=== PATIENT | female | born 1945 | race Asian ===

== ENCOUNTER → 2017-01-18 | Outpatient (CLI) | payer OTHER, BC ==
[~2017-01-18] MED LIST: ADVIN10050 INH; ASPCH81X PO; ASPI1TAB83 PO; ATEN-173 PO; CHOL20009 PO; GLC500 PO; LOSA1TAB PO; SIMV20TA2 PO; Symbicort INH
[2017-01-18 14:42] LABS: ESTIMATED AVERAGE GLUCOSE 143 mg/dl; HA1C FLAG Normal (Normal)
== END | disposition home or self-care (01) ==
LOC: C.LABBC 11:19
PROVIDERS: ATTEND Internal Medicine
DX: E11.9 Type 2 diabetes mellitus without complications (principal)

== ENCOUNTER → 2017-03-16 | Outpatient (CLI) | payer OTHER, BC | END | disposition home or self-care (01) | LOC: C.PAPS 16:13 | PROVIDERS: ATTEND Obstetrics & Gynecology | DX: Z01.42 Encounter for cervical smear to confirm findings of recent normal smear following initial abnormal smear (principal); C55 Malignant neoplasm of uterus, part unspecified ==

== ENCOUNTER → 2017-05-27 | Outpatient (CLI) | payer OTHER, BC ==
--- NOTE | 2017-05-30 12:29 | MAMMOGRAPHY REPORT ---
BILATERAL DIGITAL SCREENING MAMMOGRAM WITH CAD: 05/27/2017 TECHNIQUE: Current study was also evaluated with a Computer Aided Detection (CAD) system. Bilateral CC and MLO views were obtained. COMPARISON: Comparison is made to exams dated: 05/25/2016 mammogram, 05/19/2015 mammogram, 10/12/2013 m ammogram, 10/11/2012 mammogram, 09/27/2011 mammogram, and 04/22/2010 mammogram - [facility]. BREAST COMPOSITION: The tissue of both breasts is heterogeneously dense, which may obscure small mas ses. FINDINGS: There is a nodular 8 mm asymmetry seen within the left inferior breast on the MLO view only , which may represent normal overlapping fibroglandular tissue although spot compression tomosynthesi s views and possible breast ultrasound are recommended for further evaluation. The remainder of both breasts are stable compared to prior exams, without suspicious masses, calcific ations, or areas of architectural distortion noted. IMPRESSION: ACR BI-RADS CATEGORY 0: INCOMPLETE EVALUATION: NEED ADDITIONAL IMAGING EVALUATION Left inferior breast asymmetry, for which additional imaging evaluation is recommended. The patient will be called to schedule an appointment. Approximately 10% of breast cancers are not detected with mammography. A negative mammographic report should not delay biopsy if a clinically suggestive mass is present. Candie Johnston M.D. /:05/28/2017 14:22:57 Taximeter Repairer: Dariela ROGERS(R)(M), [facility] letter sent: Addl Imaging 0 BI-RADS Code: ACR BI-RADS Category 0: Incomplete Evaluation: Need Additional Imaging Evaluation
== END | disposition home or self-care (01) ==
LOC: C.MAMM 13:28
PROVIDERS: ATTEND Obstetrics & Gynecology
DX: Z12.31 Encounter for screening mammogram for malignant neoplasm of breast (principal); R92.8 Other abnormal and inconclusive findings on diagnostic imaging of breast

== ENCOUNTER → 2017-06-01 | Outpatient (CLI) | payer OTHER, BC ==
--- NOTE | 2017-06-01 12:24 | MAMMOGRAPHY REPORT ---
UNILATERAL LEFT DIGITAL DIAGNOSTIC MAMMOGRAM TOMOSYNTHESIS AND TARGETED LEFT ULTRASOUND: 06/01/2017 CLINICAL HISTORY: Callback from screening mammogram for left breast asymmetry. TECHNIQUE: Breast tomosynthesis in addition to standard 2D mammography was performed. Spot compress ion left CC and MLO 2-D and tomosynthesis images were obtained. COMPARISON: Comparison is made to exams dated: 05/27/2017 mammogram, 05/25/2016 mammogram, 05/19/2015 sukhdev mogram, 10/12/2013 mammogram, 10/11/2012 mammogram, and 09/27/2011 mammogram - [facility]. BREAST COMPOSITION: The tissue of the left breast is heterogeneously dense, which may obscure small masses. FINDINGS: The previously described nodular asymmetry seen within the left inferior breast on the MLO view only effaces to a baseline appearance on the additional spot compression views, with appearance of this region similar to multiple prior exams including the 2014 and 2009 exams. The tissue in this region has the appearance of normal fibroglandular tissue on the additional tomosynthesis images, wi thout evidence of a discrete mass or architectural distortion noted. Targeted ultrasound was performed of the region of the asymmetry in the left inferior breast. No irina picious masses or other suspicious sonographic abnormalities are evident. Incidentally noted in the left 3:00 breast, 2 cm from the nipple is an oval anechoic circumscribed 4 x 3 mm mass, consistent wi th a benign simple cyst. IMPRESSION: ACR BI-RADS CATEGORY 2: BENIGN, TARGETED ULTRASOUND ACR BI-RADS CATEGORY 2: BENIGN The left inferior breast asymmetry effaces on the additional views, without corresponding suspicious sonographic abnormality evident. The asymmetry is benign and compatible with normal fibroglandular t issue. There is no mammographic or targeted sonographic evidence of malignancy. A 1 year screening m ammogram is recommended. The patient has been verbally notified of the results. Approximately 10% of breast cancers are not detected with mammography. A negative mammographic report should not delay biopsy if a clinically suggestive mass is present. Candie Johnston M.D. /:06/01/2017 09:08:34 Customer Orders Clerk: Dariela ROGERS(Trevor)(M), [facility] [address] letter sent: Normal 1/2 BI-RADS Code: ACR BI-RADS Category 2: Benign Ultrasound BI-RADS: ACR BI-RADS Category 2: Benign
== END | disposition home or self-care (01) ==
LOC: C.MAMM 08:39
PROVIDERS: ATTEND Obstetrics & Gynecology
DX: R92.8 Other abnormal and inconclusive findings on diagnostic imaging of breast (principal); N64.89 Other specified disorders of breast

== ENCOUNTER → 2017-06-10 | Day surgery (SDC) | payer OTHER, BC ==
[2017-06-09 13:33] VITALS: Ht 151.1 cm; Wt 54.5 kg
[~2017-06-10] VITALS: Ht 151.1 cm; Wt 54.5 kg
[~2017-06-10] MED LIST changes: -ASPI1TAB83 PO; +LIDOCAINE HCL 2% 2 ML VIAL (20MG/ML) ONE; +PHENYLEPHRINE 100MCG/ML 5ML SYR ONE; +PROPOFOL IV EMULSION 10 MG/ML 20 ML VIAL IV ONE; -Symbicort INH
[2017-06-10 14:46] VITALS: TEMP 36.7
--- NOTE | 2017-06-10 15:06 | Endo History and Physical ---
History & Physical Date of Service: Jun 10, 2017. Chief Complaint: history of polyp Referring Physician: Dr. Luther Kaiser History of Present Illness For colonoscopy Past Surgical History Hx Cardiac Surgery: No Hx Internal Defibrillator: No Hx Pacemaker: No Hx Abdominal Surgery: No Hx of Implantable Prosthesis: No Hx Post-Op Nausea and Vomiting: Yes (EXTREME NAUSEA) Hx Cancer Surgery: Yes (ISABELLA BSO & ABDOMINAL LYMPH NODES REMOVAL) Hx Thoracic Surgery: No Hx Orthopedic: Yes (LEFT FOOT FX REPAIR (HARDWARE)) Hx Urinary Tract Surgery: No Family History None Social History Smoking Status: Never Smoker Hx Substance Use: No Hx Alcohol Use: No Allergies Coded Allergies: Adhesives (Verified Adverse Reaction, Unknown, SKIN IRRITATION, 06/10/17) Latex (Verified Adverse Reaction, Unknown, SKIN IRRITATION, 06/10/17) Morphine (Verified Adverse Reaction, Unknown, NAUSEA AND VOMITING, 06/10/17 ) Current Medications Reported Home Medications Medications Dose Route/Sig Max Daily Dose Days Date Category Vitamin D (Cholecalciferol) 2,000 Unit Tab 1 Tab PO QAM 06/09/17 Reported Zocor (Simvastatin) 20 Mg Tab 20 Mg PO QPM 06/09/17 Reported Cozaar (Losartan Potassium) 25 Mg Tab 25 Mg PO QAM 06/09/17 Reported Tenormin (Atenolol) 25 Mg Tab 25 Mg PO QAM 06/09/17 Reported Aspirin Chewable (Aspirin) 81 Mg Chew 81 Mg PO HS 06/09/17 Reported Advair Diskus 100-50 Mcg/Dose (Fluticasone Prop/Salmeterol) 14 Puff/1 Inhaler Aerp 1 Puff INH BID PRN 06/09/17 Reported Glucophage * (Metformin HCl) 500 Mg Tab 500 Mg PO BID 02/15/11 Reported Vital Signs Weight (Kilograms): 54.55 Height (Feet): 4 Height (Inches): 11.5 Date Time Temp Pulse Resp B/P (MAP) Pulse Ox O2 Delivery O2 Flow Rate FiO2 06/10/17 14:46 36.7 72 18 136/74 (94) 98 Room Air Physical Exam General Appearance: WD/WN Respiratory/Chest: Respiratory effort: no dyspnea Cardiovascular: Heart Auscultation: RRR Abdomen: Inspection & Palpation: soft Assessment and Plan Hx polyps for colonoscopy
--- NOTE | 2017-06-10 15:42 | Discharge Instructions ---
Endoscopy Patient Instructions Date / Procedure(s) Performed Jun 10, 2017. Colonoscopy Allergy Information Coded Allergies: Adhesives (Verified Adverse Reaction, Unknown, SKIN IRRITATION, 06/10/17) Latex (Verified Adverse Reaction, Unknown, SKIN IRRITATION, 06/10/17) Morphine (Verified Adverse Reaction, Unknown, NAUSEA AND VOMITING, 06/10/17 ) Discharge Date / Findings Jun 10, 2017. polyp, hemorrhoids Medication Instructions Stopped Medication(s): stopped Metformin yesterday,took ASA yesterday Restart Stopped Medication(s): resume meds Reported Home Medications Medications Dose Route/Sig Max Daily Dose Days Date Category Vitamin D (Cholecalciferol) 2,000 Unit Tab 1 Tab PO QAM 06/09/17 Reported Zocor (Simvastatin) 20 Mg Tab 20 Mg PO QPM 06/09/17 Reported Cozaar (Losartan Potassium) 25 Mg Tab 25 Mg PO QAM 06/09/17 Reported Tenormin (Atenolol) 25 Mg Tab 25 Mg PO QAM 06/09/17 Reported Aspirin Chewable (Aspirin) 81 Mg Chew 81 Mg PO HS 06/09/17 Reported Advair Diskus 100-50 Mcg/Dose (Fluticasone Prop/Salmeterol) 14 Puff/1 Inhaler Aerp 1 Puff INH BID PRN 06/09/17 Reported Glucophage * (Metformin HCl) 500 Mg Tab 500 Mg PO BID 02/15/11 Reported Provider Instructions Activity Restrictions - No exercising or heavy lifting for 24 hours. - Do not drink alcohol the day of the procedure. - Do not drive a car or operate machinery until the day after the procedure. - Do not make any important decisions or sign important papers in 24 hours after the procedure. Following Day: - Return to full activity which may include returning to work/school. Diet Start your diet with liquids and light foods (jello, soup, juice, toast). Then eat your usual diet if not nauseated. Treatment For Common After Affects For mild abdominal pain, bloating, or excessive gas: - Rest - Eat lightly - Lie on right side Follow-Up Information Follow-up with Dr. Luther Kaiser as scheduled Anesthesia Information What You Should Know You have had a procedure that required some medicine to reduce anxiety and discomfort. This treatment is called moderate sedation. After receiving the treatment, you may be sleepy, but you will be able to breathe on your own. The effects of the treatment may last for several hours. Follow these instructions along with Activity/Diet recommendations noted above: * Do NOT do anything where dizziness or clumsiness would be dangerous. * Rest quietly at home today, then you can be up and about tomorrow. * Have a responsible person stay with you the rest of today. * You may have had an I.V. today. If so, you may take the dressing off later today. Recommendations Call your doctor if: * Trouble breathing * Continuous vomiting for more than 24 hours * Temperature above 101 degrees * Severe abdominal pain or bloating * Pain not relieved by pain medicine ordered * There is increased drainage or redness from any incision * A large amount of rectal bleeding greater than 2-3 tablespoons. (If you had a polyp/s removed or have hemorrhoids, a small amount of blood - from the rectum is to be expected.) * You have any unanswered questions or concerns. IN THE EVENT OF A SERIOUS EMERGENCY, GO TO THE NEAREST EMERGENCY ROOM Your discharge instructions were prepared by provider Jared Camejo. Patient Instructions Signature Page Smiley Smith Patient (or Guardian) Signature/Date: I have read and understand the instructions given to me by my caregivers. Caregiver/RN/Doctor Signature/Date: The above-named patient and/or guardian has received patient instructions on this date. + Original Patient Signature Page (only) stays with chart. Please make copy for patient.
--- NOTE | 2017-06-10 15:46 | GI REPORT ---
Procedure Date: 06/10/2017 3:03 PM Procedure: Colonoscopy Indications: Personal history of colonic polyps Medicines: Propofol total dose 180 mg IV, Lidocaine 40 mg IV Complications: No immediate complications. Estimated Blood Loss: Estimated blood loss: none. Procedure: Pre-Anesthesia Assessment: - Prior to the procedure, a History and Physical was performed, and patient medications, allergies and sensitivities were reviewed. The patient's tolerance of previous anesthesia was reviewed. - The risks and benefits of the procedure and the sedation options and risks were discussed with the patient. All questions were answered and informed consent was obtained. After I obtained informed consent, the scope was passed under direct vision. Throughout the procedure, the patient's blood pressure, pulse, and oxygen saturations were monitored continuously. The scope was introduced through the anus and advanced to the cecum, identified by appendiceal orifice and ileocecal valve. The colonoscopy was performed without difficulty. The patient tolerated the procedure well. The quality of the bowel preparation was excellent. Findings: A 3 mm polyp was found in the recto-sigmoid colon. The polyp was sessile. The polyp was removed with a cold biopsy forceps. Resection and retrieval were complete. Estimated blood loss was minimal. Non-bleeding internal hemorrhoids were found during endoscopy. The hemorrhoids were mild. Impression: - One 3 mm polyp at the recto-sigmoid colon, removed with a cold biopsy forceps. Resected and retrieved. - Non-bleeding internal hemorrhoids. Recommendation: - Discharge patient to home (ambulatory). - Continue present medications. - Await pathology results. - Return to primary care physician PRN. Jared Camejo M.D. Jared Camejo MD 06/10/2017 3:46:01 PM This report has been signed electronically. Note Initiated On: 06/10/2017 3:03 PM I attest to the content of the Intraoperative Record and orders documented therein, exceptions below
--- NOTE | 2017-06-10 16:01 | Anesthesiology Progress Note ---
Anesthesia Post Op Note Date & Time Jun 10, 2017 at 16:01 Vital Signs Pain Intensity: 0 Vital Signs Past 12 Hours Date Time Temp Pulse Resp B/P (MAP) Pulse Ox O2 Delivery O2 Flow Rate FiO2 06/10/17 15:53 60 16 100/43 (62) 98 Room Air 06/10/17 15:48 63 16 140/69 (92) 96 Room Air 06/10/17 14:46 36.7 72 18 136/74 (94) 98 Room Air Notes Mental Status: alert / awake / arousable, participated in evaluation Pt Amnestic to Procedure: Yes Nausea / Vomiting: adequately controlled Pain: adequately controlled Airway Patency, RR, SpO2: stable & adequate BP & HR: stable & adequate Hydration State: stable & adequate Anesthetic Complications: no major complications apparent
[2017-06-10 16:08] VITALS: BP 132/61; PULSE 63; O2SAT 99
== END | disposition home or self-care (01) ==
LOC: C.GI 14:19
PROVIDERS: ATTEND Internal Medicine Gastroenterology
DX: Z12.11 Encounter for screening for malignant neoplasm of colon (principal); D12.7 Benign neoplasm of rectosigmoid junction; Z87.19 Personal history of other diseases of the digestive system

== ENCOUNTER → 2017-07-20 | Outpatient (CLI) | payer OTHER, BC ==
[~2017-07-20] MED LIST changes: -LIDOCAINE HCL 2% 2 ML VIAL (20MG/ML) ONE; -PHENYLEPHRINE 100MCG/ML 5ML SYR ONE; -PROPOFOL IV EMULSION 10 MG/ML 20 ML VIAL IV ONE
--- NOTE | 2017-07-20 12:34 | DIAGNOSTIC IMAGING REPORT ---
CHEST 2 VIEWS ROUTINE HISTORY: 72 years-old Female Chronic cough chronic cough x4 years COMPARISON: Chest radiograph 12/15/2015 TECHNIQUE: Frontal and lateral views of the chest FINDINGS: Cardiomediastinal and hilar silhouettes are within normal limits. There is atherosclerosis of the aorta. There is no pneumothorax, pleural effusion or focal airspace consolidation. Minimal blunting of left costophrenic angle suggests scarring/atelectasis. There is no overt pulmonary edema. Mild hyperinflation. The bones are grossly intact. Multilevel endplate spurring is noted with osteopenia. IMPRESSION: Hyperinflation without acute cardiopulmonary process. The above report was generated using voice recognition software. It may contain grammatical, syntax or spelling errors. Electronically signed by: Brannon Gonzales M.D. 07/20/2017 12:33 PM Dictated Date/Time: 07/20/2017 12:29 PM
[2017-07-20 13:34] LABS: BASO % 0.9 %; BASO ABS # 0.06 K/uL (0-0.2); COMPLETE YES; EOS % 1.2 %; HEMATOCRIT 40.6 % (37-47); IG% 0.2 %; LYMPH % 37.2 %; LYMPH ABS # 2.42 K/uL (1.2-3.4); MEAN CELL VOLUME 94.4 fL (80-100); MEAN PLATELET VOLUME 10.4 fL (7.4-10.4); MONO % 6.9 %; NEUT % 53.6 %; PLATELET COUNT 238 K/uL (130-400)
[2017-07-20 14:28] LABS: ALT/SGPT 19 U/L (12-78); BLOOD UREA NITROGEN 16 mg/dl (7-18); BUN/CREATININE RATIO 19.5 (10-20); CALCIUM 9.4 mg/dl (8.5-10.1); CARBON DIOXIDE 23 mmol/L (21-32); CHLORIDE 106 mmol/L (98-107); CHOLESTEROL 178 mg/dl (0-200); CREATININE 0.82 mg/dl (0.60-1.20); GLUCOSE 101 mg/dl (70-99); POTASSIUM 3.7 mmol/L (3.5-5.1); SODIUM 138 mmol/L (136-145); TRIGLYCERIDES 241 mg/dl (0-150); VERY LOW DENSITY LIPOPROT CALC 48 mg/dl
[2017-07-20 14:38] LABS: ALKALINE PHOSPHATASE 66 U/L (45-117); AST/SGOT 17 U/L (15-37); CHOLESTEROL/HDL RATIO 2.5; HDL CHOLESTEROL 72 mg/dl; LDL CHOLESTEROL CALCULATED 58 mg/dl; THYROID STIMULATING HORMONE 0.538 uIu/ml (0.300-4.500)
[2017-07-20 14:47] LABS: ESTIMATED AVERAGE GLUCOSE 140 mg/dl; HA1C FLAG Normal (Normal)
[2017-07-22 12:39] LABS: QUANTIF TB AG-NIL 0.04 IU/ML; QUANTIFERON NIL 0.23 IU/ML
== END | disposition home or self-care (01) ==
LOC: C.RADBC 11:40
PROVIDERS: ATTEND Internal Medicine
DX: R05 Cough (principal); E11.9 Type 2 diabetes mellitus without complications; I10 Essential (primary) hypertension; M81.0 Age-related osteoporosis without current pathological fracture; E78.5 Hyperlipidemia, unspecified; C55 Malignant neoplasm of uterus, part unspecified; E55.9 Vitamin D deficiency, unspecified; I25.10 Atherosclerotic heart disease of native coronary artery without angina pectoris; R91.8 Other nonspecific abnormal finding of lung field

== ENCOUNTER → 2017-07-26 | Outpatient (CLI) | payer OTHER, BC | END | disposition home or self-care (01) | LOC: C.LABBC 08:54 | PROVIDERS: ATTEND Internal Medicine | DX: R05 Cough (principal) ==

== ENCOUNTER → 2017-08-11 | Outpatient (CLI) | payer OTHER, BC | END | disposition home or self-care (01) | LOC: C.MAMM 15:08 | PROVIDERS: ATTEND Internal Medicine | DX: M85.88 Other specified disorders of bone density and structure, other site (principal); M85.852 Other specified disorders of bone density and structure, left thigh; M85.851 Other specified disorders of bone density and structure, right thigh ==

== ENCOUNTER → 2017-11-07 | Outpatient (CLI) | payer OTHER, BC ==
[2017-11-07 11:46] LABS: HEMATOCRIT 42.2 % (37-47); HEMOGLOBIN 14.7 g/dL (12.0-16.0); MEAN CELL VOLUME 95.3 fL (80-100); MEAN CORPUSCULAR HEMOGLOBIN 33.2 pg (25-34); MEAN CORPUSCULAR HGB CONC 34.8 g/dl (32-36); PLATELET COUNT 244 K/uL (130-400); RED CELL DISTRIBUTION WIDTH CV 12.4 % (11.5-14.5); RED CELL DISTRIBUTION WIDTH SD 43.1 fL (36.4-46.3); WHITE BLOOD COUNT 7.23 K/uL (4.8-10.8)
[2017-11-07 12:02] LABS: ALT/SGPT 26 U/L (12-78); AST/SGOT 20 U/L (15-37); BLOOD UREA NITROGEN 17 mg/dl (7-18); CALCIUM 9.4 mg/dl (8.5-10.1); CARBON DIOXIDE 28 mmol/L (21-32); GLUCOSE 134 mg/dl (70-99); POTASSIUM 3.8 mmol/L (3.5-5.1); SODIUM 138 mmol/L (136-145)
[2017-11-07 12:05] LABS: CHOLESTEROL 195 mg/dl (0-200); LDL CHOLESTEROL CALCULATED 96 mg/dl
== END | disposition home or self-care (01) ==
LOC: C.LABBC 07:58
PROVIDERS: ATTEND Internal Medicine Cardiovascular Disease
DX: I11.0 Hypertensive heart disease with heart failure (principal); R06.09 Other forms of dyspnea; E78.5 Hyperlipidemia, unspecified; I25.10 Atherosclerotic heart disease of native coronary artery without angina pectoris; I50.30 Unspecified diastolic (congestive) heart failure

== ENCOUNTER → 2018-06-06 | Outpatient (CLI) | payer OTHER, BC ==
[2018-06-06 13:05] LABS: BASO % 0.5 %; BASO ABS # 0.03 K/uL (0-0.2); EOS % 0.8 %; EOS ABS # 0.05 K/uL (0-0.5); HEMATOCRIT 41.1 % (37-47); HEMOGLOBIN 13.8 g/dL (12.0-16.0); IG# 0.01 K/uL (0.00-0.02); LYMPH % 34.7 %; LYMPH ABS # 2.15 K/uL (1.2-3.4); MEAN CELL VOLUME 96.3 fL (80-100); MEAN CORPUSCULAR HEMOGLOBIN 32.3 pg (25-34); MEAN CORPUSCULAR HGB CONC 33.6 g/dl (32-36); MEAN PLATELET VOLUME 10.6 fL (7.4-10.4); MONO % 7.1 %; MONO ABS # 0.44 K/uL (0.11-0.59); NEUT % 56.7 %; NEUT ABS # 3.51 K/uL (1.4-6.5); PLATELET COUNT 251 K/uL (130-400); RED CELL DISTRIBUTION WIDTH SD 45.5 fL (36.4-46.3); WHITE BLOOD COUNT 6.19 K/uL (4.8-10.8)
[2018-06-06 13:18] LABS: ALT/SGPT 28 U/L (12-78); AST/SGOT 18 U/L (15-37)
[2018-06-06 13:22] LABS: ALBUMIN 3.8 gm/dl (3.4-5.0); ALKALINE PHOSPHATASE 65 U/L (45-117); ALT/SGPT 29 U/L (12-78); AST/SGOT 19 U/L (15-37); BLOOD UREA NITROGEN 18 mg/dl (7-18); CALCIUM 9.2 mg/dl (8.5-10.1); CARBON DIOXIDE 28 mmol/L (21-32); CREATININE 0.87 mg/dl (0.60-1.20); GLUCOSE 124 mg/dl (70-99); POTASSIUM 4.2 mmol/L (3.5-5.1); SODIUM 138 mmol/L (136-145)
[2018-06-06 13:30] LABS: HEMOGLOBIN A1C 6.8 % (4.5-5.6)
== END | disposition home or self-care (01) ==
LOC: C.LABBC 08:57
PROVIDERS: ATTEND Internal Medicine
DX: I10 Essential (primary) hypertension (principal); R07.89 Other chest pain; R68.89 Other general symptoms and signs; E78.5 Hyperlipidemia, unspecified; I25.10 Atherosclerotic heart disease of native coronary artery without angina pectoris

== ENCOUNTER → 2018-06-08 | Outpatient (CLI) | payer OTHER, BC ==
--- NOTE | 2018-06-08 15:42 | MAMMOGRAPHY REPORT ---
BILATERAL DIGITAL SCREENING MAMMOGRAM TOMOSYNTHESIS WITH CAD: 06/08/2018 CLINICAL HISTORY: Routine screening. Patient has no complaints. TECHNIQUE: The study was acquired using full field digital technology and interpreted from soft copy. Breast tomosynthesis in addition to standard 2D mammography was performed. Current study was also ev aluated with a Computer Aided Detection (CAD) system. COMPARISON: Comparison is made to exams dated: 06/01/2017 mammogram, 05/27/2017 mammogram, 05/25/2016 mamm ogram, 05/19/2015 mammogram, 10/12/2013 mammogram, and 10/11/2012 mammogram - [facility] nter. BREAST COMPOSITION: The tissue of both breasts is heterogeneously dense, which may obscure small mass es. FINDINGS: No suspicious masses, calcifications, or areas of architectural distortion are noted in either breast . There has been no significant interval change compared to prior exams. IMPRESSION: ACR BI-RADS CATEGORY 1: NEGATIVE There is no mammographic evidence of malignancy. A 1 year screening mammogram is recommended.( [id number]) The patient will receive written notification of the results. Some breast cancers are not detected with mammography. A negative mammographic report should not vikas y biopsy if a clinically suggestive mass is present. Candie Johnston M.D. ah/:06/08/2018 10:16:19 Project Scientist: RT Ankita(Trevor)(M), [facility] letter sent: Normal 1/2 BI-RADS Code: ACR BI-RADS Category 1: Negative
== END | disposition home or self-care (01) ==
LOC: C.MAMM 08:36
PROVIDERS: ATTEND Obstetrics & Gynecology
DX: Z12.31 Encounter for screening mammogram for malignant neoplasm of breast (principal)

== ENCOUNTER 2019-06-27 08:07 | Observation (INO) ==
--- NOTE | 2019-06-27 09:20 | History & Physical Bridge Note ---
Date of Service June 27, 2019 History & Physical Bridge Note I have examined the patient, reviewed the History & Physical and in the interval since the performance of the History & Physical I have noted the following changes of clinical significance: no changes noted
--- NOTE | 2019-06-27 09:22 | Pre Anesthesia Assessment ---
Date of Service June 27, 2019 Pre Sedation Assessment Vital Signs Temp Pulse Resp BP Pulse Ox 06/27/19 08:28 36.9 C 57 L 17 162/72 H 97 Cardiovascular RRR, no murmur, no edema Respiratory normal respiratory effort, lungs clear to auscultation Pre-Sedation Airway Assessment Smoking Status: Never smoker Hx Sleep Apnea: No Short, Thick Neck: No Thyromental Distance: > or= 3.5 Finger Breadths Oral Cavity: + WNL Mallampati Class: II ASA: ASA3 NPO Status Date of Last Intake of Fluids: 06/27/19 Time of Last Intake of Fluids: 07:00 Date of Last Intake of Solid Food: 06/26/19 Time of Last Intake of Solid Foods: 19:00 Procedure Planning Contraindications for Sedation: none Current Medications Reviewed: Yes Notes The planned sedation has been discussed with the patient. Informed Consent was obtained. I have identified the patient, determined the appropriateness of sedation and have assessed the patient immediately prior to the procedure. All medicine(s) and interventions are by my order.
[2019-06-27] MEDS ORDERED: HEPARIN (PORCINE) 1000 UNIT/ML 10 ML (CATH LAB USE ONLY) ONE (09:25)
[2019-06-27] MEDS ORDERED: NiCARDipine HCL INJ 2.5 MG/ML 10 ML AMP ONE ×2 (09:25→09:28)
[2019-06-27] MEDS ORDERED: MIDAZOLAM HCL 1 MG/ML 2ML VIAL ONE (09:26)
[2019-06-27] MEDS ORDERED: fentaNYL citrate 100 MCG/2 ML VIAL ONE (09:26)
[2019-06-27] MEDS ORDERED: NITROGLYCERIN/D5W 100MCG/ML 20ML SYR ONE (09:27)
--- NOTE | 2019-06-27 10:29 | Cardiac Catheterization ---
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: Cigar Packer And Grader Cardiac Status Clinical evaluation leading to the procedure CAD Presenation: Stable angina Anginal Classification: CCS III Heart Failure: No Cardiogenic Shock within 24 Hours: No Cardiac Arrest within 24 Hours: No Imaging Studies Past 6 Months: Yes Stress Studies Past 6 Months: Yes Standard Exercise Test: Yes - Positive and Risk/Extent of Ischemia (Low) Stress Echocardiogram: Yes - Negative Stress Testing w/SPECT MPI: No Cardiac CTA: No Coronary Anatomy Dominant: Right Left Ventricular Angiography EF (%): n/a Diagnostic Physicians Name: Tony Wilkinson MD Status: Elective Closure Device Percutaneous Entry Location: Radial Closure Device: Radial Band (after PCI) Recommendations: PCI without planned CABG Cardiac Cath Procedure Full Procedure Date June 27, 2019 Pre-Procedure Diagnosis Pre-Procedure Diagnosis: Angina AUC Score AUC Score: 7 Post-Procedure Diagnosis Post-Procedure Diagnosis: Severe CAD and Elevated Intracardiac Pressures Procedure(s) Performed Procedure(s) Performed: Coronary Angiography and Left Heart Cath Tennis Ball Coverer Hand Tony Wilkinson MD Bed Control Specialist(s) Genoveva Estimated Blood Loss Estimated Blood Loss: < 25 ml Medication(s) Medication(s): Fentanyl, Heparin, Lidocaine 1%, Nicardipine and Versed Summary of Findings Procedures: 1. Coronary angiography 2. Left heart catheterization 3. Moderate sedation Coronary angiography: 1. Left main coronary artery: LMCA is large in caliber and tapers distally 20 to 30% without focal stenosis. 2. Left anterior descending: LAD is a large caliber vessel that extends to the apex. Proximal LAD 95%. ELVIA II flow. Mid LAD 30-40%. Medium caliber zain gonal without significant CAD. 3. Circumflex: The circumflex is a large-caliber vessel. Ostial circumflex 30%. Small OM1, medium caliber OM 2, medium caliber OM 3, and small-caliber OM 4 without significant CAD. 4. Right coronary artery: The RCA is large and dominant. Proximal RCA 30%. Early mid RCA 40%. Large caliber PDA without significant CAD. Medium caliber PL 1 and small PL2 without significant CAD. 5. Ramus intermedius: The ramus versus high/early diagonal is a small caliber vessel. Ostial stenosis of 40 to 60%. Left heart catheterization: 1. Left ventriculography was not performed. 2. No significant aortic stenosis. 3. Elevated LVEDP; 20 mmHg. Sedation start time: 9:35 AM Sedation end time: 10:10 AM Procedural details: 1. LMCA had a superior takeoff and was engaged with a 5 Chinese AL-1 diagnostic catheter. Redo RCA was selectively engaged with 5 Chinese JR4 diagnostic catheter. Impression: 1. Severe proximal LAD CAD. 2. Otherwise, nonobstructive multivessel CAD. 3. Elevated LVEDP; 20 mmHg. 4. No aortic stenosis. Plan: 1. Images were reviewed with Dr. Auguste of interventional cardiology who plans to perform PCI of proximal LAD. Hemodynamics Rest Ao:: 116/43 Final Ao: 135/47 LV: Systolic LV 134. LVEDP 20 Recommendations Recommendations: PCI without planned CABG Specimens Specimens: None Radiation Exposure (mGy) 210 mGy. FLuoro time 6.7 min. Contrast (mls) 40 ml Procedural Complication(s) None Disposition Remains in laborer carpentry dock for PCI
[2019-06-27] MEDS ORDERED: CLOPIDOGREL BISULFATE 300 MG TAB ONE (10:44)
--- NOTE | 2019-06-27 10:50 | Post Anesthesia Assessment ---
Date of Service June 27, 2019 Post Sedation Assessment Vital Signs Temp Pulse Resp BP Pulse Ox 06/27/19 08:28 98.4 F 57 L 17 162/72 H 97 Recovery Score Activity: Moves 4 extremities Respiration: Deep Breath/Cough Circulation: +/-20% PreAnes Value Consciousness: Fully Awake Oxygen Saturation: O2 needed for >90% Discharge Sedation Level of Care: Fast Track Phase II Post Sedation Plan On clinical assessment, the patient appears to have tolerated the sedation without complications. Patient is recovering as anticipated. Patient will continue to be monitored by nursing and may be discharged when sedation discharge criteria are met per below protocol. Upon Completions of procedure and additional 15 minutes continue every 5 minute vital signs and the P.A.R. score; then discharge to a Phase I or Fast Track to Phase II per the following guidelines: * Discharge Patient to appropriate Phase II area if PAR is 8 or greater or return to pre- procedure baseline. The post - procedure orders will be as directed. * If PAR score is less than 8 or not return to pre-procedure baseline then patient will follow Phase I monitoring till PAR is reached for Phase II. The Phase I may be done in procedure room or may call to secure a Phase I area. * If naloxone or flumazenil are used for reversal, hold in Phase I for continued monitoring from when last reversal dose was given for a minimum of 60 minutes or longer pending the nurse and/or physician discretion of patient condition before discharge to Phase II. Please call the Sedation Physician to re-evaluate and complete post-note for discharge to Phase II area. Do NOT discharge from procedure sedation or Phase 1 until post- sedation evaluation note is complete by procedure /sedation MD Sedation Discharge Instructions to be given to the patient at discharge to home.
--- NOTE | 2019-06-27 10:55 | Cardiac Catheterization ---
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 Cardiac Status Clinical evaluation leading to the procedure CAD Presenation: Unstable angina Anginal Classification: CCS III Heart Failure: No Cardiogenic Shock within 24 Hours: No Cardiac Arrest within 24 Hours: No Imaging Studies Past 6 Months: Yes Stress Studies Past 6 Months: Yes Stress Echocardiogram: Yes - Positive Diagnostic Physicians Name: Antonio Auguste MD Status: Elective Closure Device Percutaneous Entry Location: Radial Closure Device: Radial Band Recommendations: PCI without planned CABG PCI Indication: Unstable Angina Lesion Segment Name: proximal LAD Culprit Artery: Yes Stenosis Prior to Rx (%): 0 Chronic Total Occlusion: No IVUS: No FFR: No Pre-Procedure ELVIA Flow: 3 Previously Treated Lesion: No Lesion Complexity: Non-High/Non-C Lesion Length (mm): 12 Thrombus Present: No Bifurcation Lesion: No Guidewire Across Lesion: Stenosis Post-Procedure (%): 0 Post-Procedure ELVIA Flow: 3 Devices(s) Deployed: Yes Yes Intraprocedure Events Significant Disection: No Perforation: No Cardiac Cath Procedure Full Procedure Date June 27, 2019 Pre-Procedure Diagnosis Pre-Procedure Diagnosis: Angina AUC Score AUC Score: 7 Post-Procedure Diagnosis Post-Procedure Diagnosis: Severe CAD and Elevated Intracardiac Pressures Procedure(s) Performed Procedure(s) Performed: Coronary Angiography and Left Heart Cath Line Staker Antonio Auguste MD Evidence Technician(s) Genoveva Estimated Blood Loss Estimated Blood Loss: < 25 ml Medication(s) Medication(s): Clopidogrel, Heparin, Nicardipine and Nitroglycerin Summary of Findings Indication: Accelerating angina Access: 6 Fr right radial artery Catheters: EBU 3.5 guide Findings: For full details of patient's coronary angiography please cath report dictated by Dr. Wilkinson. Briefly, patient found to have severe stent vessel disease including a 95 % stenosis involving the proximal LAD. Decision to proceed with PCI. -- PCI -- Antithrombotic therapy: Heparin, clopidogrel Procedure: Left main cannulated with EBU 3.5 guide BMW wire passed across lesion into distal vessel Proximal LAD lesion predilated with 2.5 compliant balloon Dilated lesion stented with 2.75 x 15 mm Xience Suzanna drug-eluting stent Stent post-dilated with 2.75 noncompliant balloon IC vasodilators administered for spasm Post procedure ELVIA 3 flow, stent well expanded with minimal residual stenosis and no apparent cardiac complications. Arterial Closure: TR band Summary: 1. Successful PCI of proximal LAD with single drug-eluting stent (2.75 x 15 mm Xience Suzanna). 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
[2019-06-27] MEDS ORDERED: GLUCOSE 40% GEL 15 GM TUBE PO PRN (10:58)
[2019-06-27] MEDS ORDERED: DEXTROSE 50% 50 ML SYRINGE IV PRN (10:58)
[2019-06-27] MEDS ORDERED: GLUCOSE 10 TABS/TUBE PO PRN (10:58)
[2019-06-27] MEDS ORDERED: CARBOHYDRATES FOR HYPOGLYCEMIA PO PRN (10:58)
[2019-06-27] MEDS ORDERED: GLUCAGON FOR INJ 1 MG VIAL SQ PRN (10:58)
[2019-06-27] MEDS ORDERED: SODIUM CHLORIDE 0.9% 1000ML 1,000 ML IV SCH (11:00)
[2019-06-27] MEDS ORDERED: ONDANSETRON INJ 2 MG/ML 2 ML VIAL ONE (11:08)
[2019-06-27] MEDS: INSULIN ASPART 100 UNITS/ML 3 ML PEN SC SCH ×3 (11:29→21:51)
[2019-06-27] MEDS ORDERED: ONDANSETRON INJ 2 MG/ML 2 ML VIAL IV PRN (11:48)
[2019-06-27] MEDS: ONDANSETRON INJ 2 MG/ML 2 ML VIAL IV PRN ×2 (17:36→23:27)
[2019-06-27] MEDS ORDERED: AMIODARONE 200 MG TAB PO SCH (21:00)
[2019-06-27] MEDS ORDERED: DRONEDARONE HCL 400 MG TAB PO SCH (21:00)
[2019-06-27] MEDS: ACETAMINOPHEN 325 MG TAB PO PRN (21:50)
[2019-06-27] MEDS: APIXABAN 5 MG TABLET PO SCH (21:51)
[2019-06-28] MEDS: ONDANSETRON INJ 2 MG/ML 2 ML VIAL IV PRN (05:19)
[2019-06-28] MEDS: ACETAMINOPHEN 325 MG TAB PO PRN (06:07)
[2019-06-28] MEDS: APIXABAN 5 MG TABLET PO SCH (06:08)
[2019-06-28 07:50] LABS: BUN Creatinine Ratio 20.5 (10-20); Calcium 8.6 mg/dl (8.5-10.1); Creatinine Clr Calc Pharmacy 46.4 ml/min; Est GFR (African American) 86.9; Potassium 3.4 mmol/L (3.5-5.1)
[2019-06-28] MEDS: INSULIN ASPART 100 UNITS/ML 3 ML PEN SC SCH ×2 (08:19→11:45)
[2019-06-28] MEDS: MECLIZINE HCL 25 MG TAB PO PRN ×2 (08:41→14:26)
[2019-06-28] MEDS ORDERED: ISOSORBIDE MONO EXTENDED REL 60 MG TABCR PO SCH (09:00)
[2019-06-28] MEDS ORDERED: CLOPIDOGREL BISULFATE 75 MG TAB PO SCH ×2 (09:00)
[2019-06-28] MEDS ORDERED: ATENOLOL 25 MG TABLET PO SCH (09:00)
[2019-06-28] MEDS ORDERED: ASPIRIN 81 MG ECTAB PO SCH (09:00)
[2019-06-28] MEDS ORDERED: CHOLECALCIFEROL 1,000 UNITS TAB PO SCH (09:00)
[2019-06-28] MEDS ORDERED: LOSARTAN POTASSIUM 25 MG TAB PO SCH (09:00)
[2019-06-28] MEDS ORDERED: ATORVASTATIN 40 MG TAB PO SCH (09:00)
[2019-06-28] MEDS ORDERED: FLUTICASONE PROPIONATE NA SPR 16 GM BTL SCH (09:00)
[2019-06-28] MEDS ORDERED: MECLIZINE HCL 25MG HOME PACK PO ONE (12:00)
--- NOTE | 2019-06-28 12:38 | Discharge Summary ---
Date of Service June 28, 2019 Admission HPI Per Admitting Provider Dr. Smith presented for outpatient, elective cardiac catheterization given anginal symptoms and prior history of moderate CAD. She was found to have severe proximal LADCAD and underwent PCI with single drug eluting stent (2.75 x 15 mm Xience). Because of PCI, she was kept for observation. Discharge Data Procedures Performed Operation Date: 06/27/19 09:30 Actual Procedures p Cath, Left w/Cors Vent Grafts - Tony Wilkinson MD s Cineradiography w/Routine Exam - Tony Wilkinson MD s Drug Eluting Stent SGl Vessel - Cam Auguste MD Hospital Course (1) CAD (coronary artery disease): She was found have severe proximal LAD CAD and underwent PCI with drug- eluting stent. Continue aspirin for 1 week in conjunction with Plavix on Eliquis. Anti-platelet therapy as outlined by Dr. Auguste of interventional Cardiology. She has not had any further angina following PCI. Her right radial cath site was without complication. Medications were reviewed with her. Continue low-dose beta-arturo. Continue statin therapy. (2) S/P coronary artery stent placement: Anti-platelet therapy as outlined above. 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 Therefore, 5 days a Plavix were provided to her on discharge from the hospital pharmacy. She states that she will be able to drive to the pharmacy on Tuesday. (3) Paroxysmal atrial fibrillation: Amiodarone was initiated within the past week for paroxysmal atrial fibrillation noted as an outpatient. She was bradycardic throughout her hospital stay with heart rates in the 40s to 50s and was having issues with nausea and vomiting. Amiodarone held for now but may restart if she has recurrent episodes of symptomatic atrial fibrillation. Continue Eliquis for Stroke risk reduction. No atrial fibrillation while hospitalized. (4) Dizziness: She developed dizziness and nausea/vomiting following sedation. She states that this is typical for her and can last up to 24 hours. Nausea and vomiting improved intermittently with Zofran. Nursing staff noted that the dizziness appeared to cause her nausea and vomiting. We discussed this and she admitted that she has had issues with vertigo pre-hospital and that she responds well to meclizine. She was given 1 dose of meclizine and her symptoms improved. She was provided with some meclizine on discharge to help with symptom control. If symptoms continue, follow-up with PCP. (5) Nausea & vomiting: She states that this is a typical response for her following sedation. It appeared as though dizziness may have been also contributing to her nausea. P.rveronica Damon. (6) Hypertension: Blood pressure normotensive to mildly hypertensive. Continue current outpatient regimen on discharge. If blood pressure is more consistently eleva carla, titration can be performed as appropriate. (7) Hyperlipidemia: She has not tolerated Lipitor or Crestor in the past due to myalgias. Continue simvastatin. Disposition: Follow-up in 1 week in the cardiology office. Call with any questions or concerns in the meantime. Discharge Instructions Current Inpatient Medications Acetaminophen (Tylenol) 650 mg PO Q4H PRN PRN Reason: Mild Pain (scale 1-3) Stop: 07/27/19 10:54 Last Admin: 06/28/19 06:07 Dose: 650 mg Documented by: Apixaban (Eliquis) 5 mg PO BID [facility] Stop: 07/27/19 20:59 Last Admin: 06/28/19 06:08 Dose: 5 mg Documented by: Aspirin (Ecotrin Ectab) 81 mg PO QAM [facility] Stop: 07/28/19 08:59 Last Admin: 06/28/19 09:27 Dose: 81 mg Documented by: Atenolol (Tenormin) 25 mg PO DAILY [facility] Stop: 07/28/19 08:59 Atorvastatin Calcium (Lipitor) 40 mg PO QAM [facility] Stop: 07/28/19 08:59 Last Admin: 06/28/19 08:43 Dose: Not Given Documented by: Clopidogrel Bisulfate (Plavix) 75 mg PO QAM [facility] Stop: 07/28/19 08:59 Last Admin: 06/28/19 09:28 Dose: 75 mg Documented by: Clopidogrel Bisulfate (Plavix) 75 mg PO DAILY Stop: 07/02/19 23:59 Dextrose (Dextrose 50%) 25 - 50 ml IV UD PRN; Protocol PRN Reason: Hypoglycemia Protocol Stop: 07/27/19 10:57 Fluticasone Propionate (Flonase) 1 sprays NA DAILY [facility] Stop: 07/28/19 08:59 Last Admin: 06/28/19 08:43 Dose: Not Given Documented by: Glucagon (Glucagen) 1 mg SQ UD PRN; Protocol PRN Reason: Hypoglycemia Protocol Stop: 07/27/19 10:57 Glucose (Dex4 Glucose) 4 - 8 tabs PO UD PRN; Protocol PRN Reason: Hypoglycemia Protocol Stop: 07/27/19 10:57 Glucose (Glucose 40%) 15 - 30 gm PO UD PRN; Protocol PRN Reason: Hypoglycemia Protocol Stop: 07/27/19 10:57 Insulin Aspart (Novolog Flexpen) 0 units SC ACHS [facility] Stop: 07/27/19 11:29 Last Admin: 06/28/19 11:45 Dose: Not Given Documented by: Isosorbide Mononitrate (Imdur Extended Rel) 60 mg PO DAILY [facility] Stop: 07/28/19 08:59 Last Admin: 06/28/19 09:27 Dose: 60 mg Documented by: Losartan Potassium (Cozaar) 25 mg PO DAILY [facility] Stop: 07/28/19 08:59 Last Admin: 06/28/19 09:27 Dose: 25 mg Documented by: Meclizine HCl (Antivert) 25 mg PO Q6H PRN PRN Reason: Dizziness or Vertigo Stop: 07/28/19 08:06 Last Admin: 06/28/19 08:41 Dose: 25 mg Documented by: Miscellaneous (Carbohydrates For Hypoglycemia) 15 - 30 gm PO UD PRN PRN Reason: Hypoglycemia Treatment Stop: 07/27/19 10:57 Ondansetron HCl (Zofran) 4 mg IV Q6H PRN PRN Reason: Nausea And Vomiting Stop: 07/27/19 10:54 Last Admin: 06/28/19 05:19 Dose: 4 mg Documented by: Vitamin D (Vitamin D3) 2,000 units PO DAILY [facility] Stop: 07/28/19 08:59 Last Admin: 06/28/19 08:43 Dose: Not Given Documented by:
--- NOTE | 2019-06-28 21:53 | Post Anesthesia Assessment ---
Date of Service June 28, 2019 Post Sedation Assessment Vital Signs Temp Pulse Pulse Resp BP BP Pulse Ox 06/28/19 14:17 36.9 C 51 L 14 110/47 L 160/67 H 95 06/28/19 11:32 36.9 C 51 L 14 110/47 L 95 06/28/19 07:45 51 L 06/28/19 07:00 36.9 C 50 L 15 167/64 H 98 06/28/19 05:01 36.7 C 46 L 18 167/61 H 98 06/28/19 00:00 54 L 06/27/19 23:36 36.5 C 57 L 16 142/69 H 97 Recovery Score Activity: Moves 4 extremities Respiration: Deep Breath/Cough Circulation: +/-20% PreAnes Value Consciousness: Fully Awake Oxygen Saturation: > 92% On Room Air Post Sedation Plan On clinical assessment, the patient appears to have tolerated the sedation without complications. Patient is recovering as anticipated. Patient will continue to be monitored by nursing and may be discharged when sedation discharge criteria are met per below protocol. Upon Completions of procedure and additional 15 minutes continue every 5 minute vital signs and the P.A.R. score; then discharge to a Phase I or Fast Track to Phase II per the following guidelines: * Discharge Patient to appropriate Phase II area if PAR is 8 or greater or return to pre- procedure baseline. The post - procedure orders will be as directed. * If PAR score is less than 8 or not return to pre-procedure baseline then patient will follow Phase I monitoring till PAR is reached for Phase II. The Phase I may be done in procedure room or may call to secure a Phase I area. * If naloxone or flumazenil are used for reversal, hold in Phase I for continued monitoring from when last reversal dose was given for a minimum of 60 minutes or longer pending the nurse and/or physician discretion of patient condition before discharge to Phase II. Please call the Sedation Physician to re-evaluate and complete post-note for discharge to Phase II area. Do NOT discharge from procedure sedation or Phase 1 until post- sedation evaluation note is complete by procedure /sedation MD Sedation Discharge Instructions to be given to the patient at discharge to home.
== END 2019-06-28 16:03 | disposition home or self-care (01) ==
LOC: 2E 08:07 → CC 08:07